=== PATIENT | female | born 1955 | race Caucasian/White ===

== ENCOUNTER 2019-10-29 01:31 | Inpatient (IN) | payer BC, MEDICARE ==
[2019-10-29 03:33] VITALS: BMI 26.4
[2019-10-29 03:43] LABS: CKMB 10.1 ng/mL (0-6.6)
[2019-10-29] MEDS ORDERED: Nitroglycerin 0.4mg/Hour PATCH TD SCH (04:00)
[2019-10-29] MEDS ORDERED: Metoprolol Tartrate 5 MG/5 ML VIAL IVP PRN (04:15)
--- NOTE | 2019-10-29 04:41 | HP ---
REASON FOR ADMISSION: Chest pain. HISTORY OF PRESENT ILLNESS: This is a 63-year-old female patient presenting for chest pain. History going back to two weeks before her presentation. She has been experiencing chest pain, described as pressure-like in nature, localized in the retrosternal area, sometimes radiating to her arms and jaw, associated with off and on shortness of breath, occurring with activity and sometimes even when she takes a shower. Also, her blood pressure has been uncontrolled for the past few months. She was initially trialed on atenolol and at some point, had to go to the emergency room and she was started on a new beta prieto, but her blood pressure remained elevated and even at some point, she had a systolic of 220. At the emergency room, she was found to have positive troponin. She was given nitroglycerin and morphine with 50% reduction of her chest pain. She was then given IV Lopressor and aspirin and Lovenox. She was then transferred to our emergency room. Currently, she is on telemetry and she appears to be comfortable, but still have slight amount of chest pressure. PAST MEDICAL HISTORY: 1. High blood pressure. 2. GERD. SOCIAL HISTORY: She has history of remote smoking. She drinks alcohol occasionally. ALLERGIES: TO CODEINE, IODINE, AND SULFA. SHE SAYS THAT TO IODINE SHE DEVELOPS A RASH AND ITCHING. CODEINE MAKES HER AGITATED. FAMILY HISTORY: Positive for heart disease in her mother and grandmother. REVIEW OF SYSTEMS: All systems reviewed except the above mentioned, found to be negative. PHYSICAL EXAMINATION: GENERAL: She is awake, alert, oriented, does not appear in distress. VITAL SIGNS: Her blood pressure is 134/99, heart rate of 101, temperature is 98.1, saturating 93% on room air. HEENT: Head is nontraumatic, normocephalic. Pupils equal, reactive. Extraocular movements are intact. Nonicteric sclerae. Well-injected conjunctivae. Oral mucosa normal. Nasal mucosa normal. NECK: Supple. No adenopathy. No murmur. Thyroid is not palpable. Trachea is midline. No supraclavicular adenopathy. HEART: S1, S2 regular. No murmur. No gallops. No friction rubs. No displacement of PMI. LUNGS: Clear to auscultation bilaterally. No wheezes, rhonchi, or crackles. ABDOMEN: Bowel sounds are positive. Nontender abdomen. No hepatosplenomegaly. EXTREMITIES: No lower extremity edema. No cyanosis noted. NEUROLOGIC: Cranial nerves 2 through 12 within normal limits. Normal motor function. Normal sensory function. LABORATORY DATA: Blood work shows sodium of 140, potassium 3.9, BUN of 20, creatinine 0.5. Initial CK 312, CK-MB of 9.3, repeat is 10.1. Troponin 0.24 in our facility, repeat is 1.026. WBC of 12.3, hemoglobin of 15.3. EKG shows normal sinus rhythm with nonspecific T-wave abnormality as per my read. Her QTc is 516. Chest x-ray shows no acute finding. ASSESSMENT AND PLAN: This is a 63-year-old female patient who is presenting with chest pain and positive troponin. She does have non-ST elevation myocardial infarction. She does have recent history of uncontrolled blood pressure. The patient will be admitted to telemetry. We will continue cycling her cardiac enzymes. The patient did receive a full dose of Lovenox in the emergency room. I plan to consult Cardiology for further input. Until then, we will continue with blood pressure control. Also, I will use a nitroglycerin patch to control her chest pain and we will add morphine on as-needed basis if in case her chest pain does not resolve with a nitroglycerin patch. We will check a lipid profile and we will have her on daily aspirin. For her gastroesophageal reflux disease, she will be on PPI. For deep venous thrombosis prophylaxis, she will be on SCDs and she did receive full-dose Lovenox. The patient is a full code. Job ID: [id number]
[2019-10-29] MEDS: Morphine 2 MG/ML VIAL SLOW IVP PRN (05:02)
[2019-10-29 06:02] LABS: Troponin I 1.416 ng/mL (< 0.028)
[2019-10-29] MEDS ORDERED: Aspirin 325 MG TAB PO SCH (09:00)
[2019-10-29 09:16] LABS: Troponin I 1.899 ng/mL (< 0.028)
[2019-10-29] MEDS ORDERED: Communication Order-Pharmacy FS SCH ×2 (11:45)
[2019-10-29] MEDS: predniSONE 20 MG TAB PO SCH ×3 (12:39→23:38)
--- NOTE | 2019-10-29 13:29 | CON ---
DATE OF CONSULTATION: HISTORY OF PRESENT ILLNESS: Ary Olea is a 63-year-old white female with no prior cardiac history. Approximately 2 weeks ago, she began to have episodes of chest discomfort. She describes this as a pressure that radiate into her arms and jaw at times associated with some shortness of breath at times. No nausea, vomiting, or diaphoresis. She had been placed on atenolol, which did not seem to be controlling her blood pressure approximately 2 months ago. On October 26, she went to the emergency room here at [facility] and was placed on lisinopril. She did complain of some chest discomfort at that time. The pain continued to worsen and she went to [facility] Emergency Room late last night. Troponin was abnormal. She was given nitroglycerin, morphine, aspirin, IV Lopressor, and then transferred to [facility]. She also was given Lovenox. Her chest discomfort dramatically improved. It is unclear how long her usual episodes at home would last and she states that she has had continual chest pressure for 2 weeks. PAST MEDICAL HISTORY: Hypertension, hypercholesterolemia. In the past, she was on Lipitor, but it caused nausea, vomiting, diaphoresis, and she stopped taking it. No history of diabetes. GERD. SOCIAL HISTORY: She smoked in the past, but not presently. MEDICATIONS: 1. Nexium 20 daily. 2. Also she was recently placed on lisinopril. ALLERGIES: CODEINE, IODINE, SULFA. SHE THINKS HER ALLERGY TO IODINE WAS DUE TO TOPICAL BETADINE AT THE TIME OF CHILDBIRTH AND CAUSED ITCHING OR RASH. SHE DENIES EVER BEING CHALLENGED WITH INTRAVENOUS CONTRAST. FAMILY HISTORY: Her mother had stents placed. REVIEW OF SYSTEMS: A 10-point review of systems is otherwise unremarkable. PHYSICAL EXAMINATION: VITAL SIGNS: Blood pressure 113/76, pulse of 102. HEENT: PERRL. NECK: Supple. CHEST: Clear. CARDIAC: S1 and S2 normal without any S3, S4, or murmurs. Carotid upstrokes normal without bruits. ABDOMEN: Normal bowel sounds without tenderness or organomegaly. EXTREMITIES: Reveal no clubbing, cyanosis, or edema. NEUROLOGIC: Grossly intact. SKIN: Warm and dry. LABORATORY DATA: EKG reveals normal sinus rhythm with Q-waves in III and consistent with previous inferior infarction, left ventricular hypertrophy. Blood work from [facility] revealed sodium 140, potassium 3.9, chloride 105, carbon dioxide 25, BUN 20, creatinine 0.5. CK 312, CK-MB 9.3, troponin I was elevated at 0.24. White count 12,300, hemoglobin 15.3, hematocrit 49.0, platelets 356,000. D-dimer less than 100. COVID negative. Further troponin I here gone up to 1.899, CK-MB 10.1. Cholesterol 239, triglycerides 261, HDL 40, LDL 147. IMPRESSION: 1. [id number] myocardial infarction. 2. Probable previous inferior infarction on EKG. 3. Hypertension. 4. Hypercholesterolemia. She took Lipitor in the past and had nausea and vomiting with it. 5. Former smoker. 6. Positive family history. PLAN: The situation was discussed with the patient. It is recommended she undergo cardiac catheterization. Risks of this were discussed including , myocardial infarction, dye reaction, vascular injury, CVA, transfusion, limb loss, renal loss, etc. Also risk of intervention with PTCA and stent placement discussed including , myocardial infarction, emergent CABG, restenosis, stent thrombosis, vessel perforation, etc. She understands and agrees to proceed. Atorvastatin will be discontinued since she did not tolerate this in the past and said she will be placed on Crestor. Echocardiogram also will be performed. RADU will be placed if needed. Job ID: [id number] [facility]
[2019-10-29] MEDS: Acetaminophen 325 MG TAB PO PRN ×2 (14:07→20:47)
[2019-10-29] MEDS ORDERED: Atorvastatin Calcium 20 MG TAB PO SCH (21:00)
[2019-10-29] MEDS ORDERED: Rosuvastatin 20 MG TAB PO SCH (21:00)
[2019-10-30] MEDS: Morphine 2 MG/ML VIAL SLOW IVP PRN ×2 (00:14→19:58)
[2019-10-30] MEDS: predniSONE 20 MG TAB PO SCH ×3 (00:15→15:42)
--- NOTE | 2019-10-30 00:50 | PDOC.EVN ---
Event Note - Event Note Event Note: Notified by RN, patient with recurring CP 9/10 in severity. BP 130s systolic. HR 105. Given morphine but IV leaking. New IV placed and remaining morphine administered through new access. Thinks she may have received about 1mg of 2mg given. Advised to obtain EKG. Check troponins. Will give additional 1 mg of morphine x 1.
[2019-10-30] MEDS ORDERED: Morphine 2 MG/ML VIAL SLOW IVP SCH (01:00)
[2019-10-30] MEDS ORDERED: Nitroglycerin 0.4 MG TAB (25 Tab Bottle) ONE (01:07)
[2019-10-30] MEDS ORDERED: Nitroglycerin 0.4 MG TAB (25 Tab Bottle) SL SCH (01:15)
[2019-10-30 01:28] LABS: Critical Call Chem Troponin I RESULT DECREASING
[2019-10-30 01:35] LABS: #Lymphocytes 1.8 thou/uL (1.20-3.40); #Monocytes 0.3 thou/uL (0.11-0.59); #Neutrophils 7.9 thou/uL (1.40-6.50); %Basophils 0.3 % (0.0-1.0); %Eosinophils 0.2 % (0.0-10.0); %Lymphocytes 17.9 % (21.0-51.0); %Monocytes 3.1 % (0.0-10.0); %Neutrophils 78.5 % (42.0-75.0); Hemoglobin 15.2 g/dL (12.0-16.0); Mean Corpuscular HGB CONC 33.6 g/dL (32.0-36.0); Mean Corpuscular Hemoglobin 30.2 pg (27.0-31.0); Mean Corpuscular Volume 89.9 fL (78.0-98.0); Mean Platelet Volume 7.2 fL (7.4-10.4); Platelet Count 296 thou/uL (130-400); RBC Distribution Width 12.2 % (11.5-14.5); Red Blood Cell (RBC) Count 5.03 mill/uL (4.20-5.40); White Blood Cell (WBC) Count 10.1 thou/uL (4.8-10.8)
[2019-10-30 01:48] LABS: CKMB 7.7 ng/mL (0-6.6); Critical Call CKMB RESULT DECREASING
[2019-10-30 01:49] LABS: Anion Gap 17 mmol/L (10-20); BUN (Urea Nitrogen) 15 mg/dL (9.8-20.1); Calc. Creatinine Clearance 78 mL/min (70-130); Calcium 9.3 mg/dL (7.8-10.44); Carbon Dioxide 20 mmol/L (23-31); Chloride 106 mmol/L (98-107); Estimated GFR-MDRD 79; Glucose 140 mg/dL (80-115); Potassium 4.1 mmol/L (3.5-5.1); Sodium 139 mmol/L (136-145)
[2019-10-30 03:05] LABS: INR-International Normal Ratio 0.9; PTT 23.4 sec (22.9-36.1); Prothrombin Time 12.4 sec (12.0-14.7)
[2019-10-30 05:23] LABS: CKMB 8.1 ng/mL (0-6.6)
[2019-10-30] MEDS ORDERED: Sodium Chloride 0.9% 1,000 ML IV SCH ×2 (06:00→12:16)
[2019-10-30 07:36] LABS: Critical Call Chem Troponin I RESULT DECREASING
[2019-10-30] MEDS: Aspirin 81 mg Enteric Coated Tablet PO SCH (08:00)
[2019-10-30] MEDS ORDERED: Heparin 10,000 UNITS/ 10 ML VIAL ONE (09:57)
[2019-10-30] MEDS ORDERED: Lidocaine 1% (PF) 30 ML VIAL ONE ×2 (09:58)
[2019-10-30] MEDS ORDERED: Midazolam HCl 2 mg/2 ml Vial ONE (11:01)
[2019-10-30] MEDS ORDERED: Fentanyl 100 MCG/2 ML VIAL ONE ×2 (11:01→15:18)
[2019-10-30] MEDS ORDERED: Bivalirudin 250 MG VIAL ONE (11:21)
[2019-10-30] MEDS ORDERED: Clopidogrel Bisulfate 300 MG TAB ONE (11:21)
[2019-10-30] MEDS ORDERED: Nitroglycerin 100MG/250ML BOT 250 ML ONE (11:22)
[2019-10-30] MEDS ORDERED: Ondansetron PF 4 MG/2 ML Vial ONE (11:32)
[2019-10-30] MEDS ORDERED: Iopamidol 370 76% 100 ML VIAL ONE (12:54)
[2019-10-30] MEDS ORDERED: Iopamidol 370 76% 50 ML VIAL FS ONE (12:54)
[2019-10-30] MEDS ORDERED: Metoprolol Tartrate 5 MG/5 ML VIAL ONE ×2 (13:22→15:18)
--- NOTE | 2019-10-30 14:09 | PDOC.HOSPP ---
- Subjective Encounter Date: 10/30/19 - Objective Vital Signs & Weight: Vital Signs (12 hours) Temp Pulse Resp BP BP Pulse Ox 10/30/19 12:34 94 L 10/30/19 08:26 98.6 F 73 16 136/89 94 L 10/30/19 03:45 98.4 F 94 18 105/75 96 Weight Weight 139 lb 9.6 oz I&O: 10/29/19 10/30/19 10/31/19 06:59 06:59 06:59 Intake Total 580 Balance 580 Result Diagrams: 10/30/19 01:10 10/30/19 01:10 Hospitalist ROS - Medication Medications: Active Medications Generic Name Dose Route Start Last Admin Trade Name Freq PRN Reason Stop Dose Admin Acetaminophen 650 mg 10/29/19 12:42 10/29/19 20:47 Acetaminophen 325 Mg Tab PO 650 mg Q6H PRN Administration Pain Aspirin 81 mg 10/30/19 09:00 10/30/19 08:00 Aspirin 81 Mg Enteric Coated Tablet PO Not Given DAILY [facility] Morphine Sulfate 2 mg 10/29/19 03:57 10/30/19 00:14 Morphine 2 Mg/Ml Vial SLOW IVP 2 mg Q4H PRN Administration Pain Pantoprazole Sodium 40 mg 10/29/19 09:00 10/30/19 08:00 Pantoprazole 40 Mg Tab PO Not Given DAILY [facility] Hosp A/P (1) Non-ST elevation [place] (NSTEMI) Code(s): I21.4 - NON-ST ELEVATION (NSTEMI) MYOCARDIAL INFARCTION Status: Acute (2) Hypertension Code(s): I10 - ESSENTIAL (PRIMARY) HYPERTENSION Status: Acute (3) GERD (gastroesophageal reflux disease) Code(s): K21.9 - GASTRO-ESOPHAGEAL REFLUX DISEASE WITHOUT ESOPHAGITIS Status: Acute - Plan NSTEMI status post cardiac cath with placement of RADU. Need dual antiplatelets, carvedilol and nitroglycerin. Appreciate cardiology.
[2019-10-30] MEDS: Acetaminophen 325 MG TAB PO PRN (17:23)
[2019-10-30] MEDS: Carvedilol 3.125 MG TAB PO SCH (17:24)
[2019-10-30] MEDS: Rosuvastatin 20 MG TAB PO SCH (20:01)
[2019-10-31 04:10] LABS: #Lymphocytes 3.6 thou/uL (1.20-3.40); #Monocytes 0.8 thou/uL (0.11-0.59); #Neutrophils 6.1 thou/uL (1.40-6.50); %Basophils 0.1 % (0.0-1.0); %Eosinophils 0.3 % (0.0-10.0); %Lymphocytes 34.2 % (21.0-51.0); %Monocytes 7.9 % (0.0-10.0); %Neutrophils 57.4 % (42.0-75.0); Hemoglobin 12.5 g/dL (12.0-16.0); Mean Corpuscular HGB CONC 33.1 g/dL (32.0-36.0); Mean Corpuscular Hemoglobin 29.7 pg (27.0-31.0); Mean Corpuscular Volume 89.7 fL (78.0-98.0); Mean Platelet Volume 7.1 fL (7.4-10.4); Platelet Count 313 thou/uL (130-400); RBC Distribution Width 12.4 % (11.5-14.5); Red Blood Cell (RBC) Count 4.22 mill/uL (4.20-5.40); White Blood Cell (WBC) Count 10.6 thou/uL (4.8-10.8)
[2019-10-31 04:33] LABS: ALT (SGPT) 16 U/L (8-55); AST (SGOT) 15 U/L (5-34); Albumin 3.6 g/dL (3.4-4.8); Alkaline Phosphatase 69 U/L (40-110); Anion Gap 13 mmol/L (10-20); BUN (Urea Nitrogen) 15 mg/dL (9.8-20.1); Bilirubin, Total 0.4 mg/dL (0.2-1.2); Calc. Creatinine Clearance 91 mL/min (70-130); Calcium 8.2 mg/dL (7.8-10.44); Carbon Dioxide 22 mmol/L (23-31); Chloride 108 mmol/L (98-107); Estimated GFR-MDRD Greater than 90; Globulin 2.2 g/dL (2.4-3.5); Glucose 95 mg/dL (80-115); Potassium 3.7 mmol/L (3.5-5.1); Protein, Total 5.8 g/dL (6.0-8.3); Sodium 139 mmol/L (136-145)
[2019-10-31] MEDS: Carvedilol 3.125 MG TAB PO SCH ×2 (08:32→16:50)
[2019-10-31] MEDS: Aspirin 81 mg Enteric Coated Tablet PO SCH (08:32)
[2019-10-31] MEDS: Clopidogrel Bisulfate 75 MG TAB PO SCH (08:32)
[2019-10-31] MEDS: Acetaminophen 325 MG TAB PO PRN ×2 (11:57→20:54)
--- NOTE | 2019-10-31 14:30 | PDOC.HOSPP ---
- Subjective Encounter Date: 10/31/19 Subjective: Denies chest pain. - Objective Vital Signs & Weight: Vital Signs (12 hours) Temp Pulse Pulse Pulse Resp BP BP 10/31/19 11:35 98.2 F 76 16 10/31/19 09:32 83 83 146/89 H 127/80 10/31/19 09:00 98.1 F 75 16 10/31/19 07:57 10/31/19 04:17 98.4 F 73 18 BP BP Pulse Ox Pulse Ox Pulse Ox 10/31/19 11:35 133/79 94 L 10/31/19 09:32 97 97 10/31/19 09:00 137/91 H 96 10/31/19 07:57 96 10/31/19 04:17 140/82 96 Weight Weight 140 lb 8 oz I&O: 10/30/19 10/31/19 11/01/19 06:59 06:59 06:59 Intake Total 580 1280 Output Total 650 Balance 580 630 Result Diagrams: 10/31/19 03:32 10/31/19 03:32 Hospitalist ROS - Medication Medications: Active Medications Generic Name Dose Route Start Last Admin Trade Name Freq PRN Reason Stop Dose Admin Acetaminophen 650 mg 10/29/19 12:42 10/31/19 11:57 Acetaminophen 325 Mg Tab PO 650 mg Q6H PRN Administration Pain Aspirin 81 mg 10/30/19 09:00 10/31/19 08:32 Aspirin 81 Mg Enteric Coated Tablet PO 81 mg DAILY JONE Administration Carvedilol 3.125 mg 10/30/19 17:00 10/31/19 08:32 Carvedilol 3.125 Mg Tab PO 3.125 mg BID-WM JONE Administration Clopidogrel Bisulfate 75 mg 10/31/19 09:00 10/31/19 08:32 Clopidogrel Bisulfate 75 Mg Tab PO 75 mg DAILY JNOE Administration Morphine Sulfate 2 mg 10/29/19 03:57 10/30/19 19:58 Morphine 2 Mg/Ml Vial SLOW IVP 2 mg Q4H PRN Administration Pain Pantoprazole Sodium 40 mg 10/29/19 09:00 10/31/19 08:32 Pantoprazole 40 Mg Tab PO 40 mg DAILY JONE Administration Rosuvastatin Calcium 40 mg 10/30/19 21:00 10/30/19 20:01 Rosuvastatin 20 Mg Tab PO 40 mg HS JONE Administration - Exam General Appearance: awake alert ENT: normocephalic atraumatic Neck: supple, no JVD Respiratory: normal chest expansion, no tachypnea Neurological: cranial nerve grossly intact, no focal deficits Hosp A/P (1) Non-ST elevation [place] (NSTEMI) Code(s): I21.4 - NON-ST ELEVATION (NSTEMI) MYOCARDIAL INFARCTION Status: Acute (2) Hypertension Code(s): I10 - ESSENTIAL (PRIMARY) HYPERTENSION Status: Acute (3) GERD (gastroesophageal reflux disease) Code(s): K21.9 - GASTRO-ESOPHAGEAL REFLUX DISEASE WITHOUT ESOPHAGITIS Status: Acute - Plan NSTEMI status post cardiac cath with placement of RADU. Need dual antiplatelets, carvedilol and nitroglycerin. No new symptoms today. Will DC when okay by cardiology.
[2019-10-31] MEDS: Rosuvastatin 20 MG TAB PO SCH (20:54)
[2019-10-31] MEDS: Lisinopril 2.5 MG TAB PO SCH (20:54)
[2019-11-01 07:10] VITALS: TEMP 97.9
[2019-11-01] MEDS: Carvedilol 3.125 MG TAB PO SCH (09:00)
[2019-11-01] MEDS: Aspirin 81 mg Enteric Coated Tablet PO SCH (09:00)
[2019-11-01] MEDS: Lisinopril 2.5 MG TAB PO SCH (09:00)
[2019-11-01] MEDS: Clopidogrel Bisulfate 75 MG TAB PO SCH (09:00)
[2019-11-01 09:54] VITALS: BP 137/80
--- NOTE | 2019-11-01 12:15 | DIS ---
DATE OF ADMISSION: 10/29/2019 DATE OF DISCHARGE: 11/01/2019 DISCHARGE DIAGNOSES: 1. [id number] myocardial infarction. 2. Coronary artery disease. 3. Hypertension. 4. Gastroesophageal reflux disease. DISCHARGE MEDICATIONS: 1. Aspirin 81 mg orally daily. 2. Plavix 75 mg orally daily. 3. Carvedilol 3.125 mg orally twice daily. 4. Lisinopril 2.5 mg orally twice daily. 5. Crestor 40 mg orally nightly. HISTORY OF PRESENT ILLNESS AND HOSPITAL COURSE: The patient is a 63-year-old female with past medical history of hypertension and hyperlipidemia, who presented to the hospital with chest pain. The patient's initial troponin was elevated at 1, which continued to trend up to 1.8. Guideline directed therapy for [id number] UT was initiated. The patient underwent subsequent cardiac catheterization with placement of drug-eluting stent in the proximal LAD. Dual antiplatelet therapy initiated in addition to KIRT inhibitors and beta blockers as noted above. The patient has been discharged in a stable condition and will follow with PCP in a week. Job ID: [id number]
== END 2019-11-01 11:05 | disposition home or self-care (01) | DRG 247 ==
LOC: ERS 01:31 → 2NO 02:31 → CCU 10-30 12:07 → 2NO 10-30 12:26
PROVIDERS: ADMIT Internal Medicine; ATTEND Internal Medicine
PROC: B2111ZZ Fluoroscopy of Multiple Coronary Arteries using Low Osmolar Contrast (ICD-10-PCS; principal; 2019-10-30)
PROC: 027136Z Dilation of Coronary Artery, Two Arteries with Three Drug-eluting Intraluminal Devices, Percutaneous Approach (ICD-10-PCS; 2019-10-30)
PROC: B2151ZZ Fluoroscopy of Left Heart using Low Osmolar Contrast (ICD-10-PCS; 2019-10-30)
PROC: 4A023N7 Measurement of Cardiac Sampling and Pressure, Left Heart, Percutaneous Approach (ICD-10-PCS; 2019-10-30)
DX: I21.4 Non-ST elevation (NSTEMI) myocardial infarction (principal); I10 Essential (primary) hypertension; E78.00 Pure hypercholesterolemia, unspecified; K21.9 Gastro-esophageal reflux disease without esophagitis; Z88.2 Allergy status to sulfonamides; Z88.6 Allergy status to analgesic agent; Z87.891 Personal history of nicotine dependence; I25.10 Atherosclerotic heart disease of native coronary artery without angina pectoris
CPT/HCPCS: 36415; 80053; 80061; 82553; 84484; 85025; 85347; 85610; 85730; 92928; 93005; 93010; 93306; 93458; 93798; 94760; 99152; 99153; C1874; C9600; J0583; J1644; J2001; J2250; J2270; J2405; J3010; J7512; Q9967